=== PATIENT | female | born 1960 | race Caucasian/White ===

== ENCOUNTER → 2017-10-27 12:08 | Outpatient (CLI) | payer OTHER | END | disposition home or self-care (01) | LOC: D.MAMMO 08:15 | DX: Z12.31 Encounter for screening mammogram for malignant neoplasm of breast (principal) ==

== ENCOUNTER → 2020-09-04 09:45 | Outpatient (CLI) | payer OTHER | END | disposition home or self-care (01) | LOC: D.MAMMO 09:45 | PROVIDERS: ATTEND Nurse Practitioner Family | DX: Z12.31 Encounter for screening mammogram for malignant neoplasm of breast (principal) ==